=== PATIENT | female | born 1975 | race Asian ===

== ENCOUNTER 2017-02-27 07:39 | Emergency (ER) | payer OTHER ==
[~2017-02-27] VITALS: Ht 154.9 cm; Wt 61.3 kg
[2017-02-27 08:53] VITALS: BP 121/88
== END 2017-02-27 08:53 | disposition home or self-care (01) ==
LOC: ED 07:39
DX: M54.5 Low back pain (principal); F17.200 Nicotine dependence, unspecified, uncomplicated; X50.0XXA Overexertion from strenuous movement or load, initial encounter; Y93.89 Activity, other specified; Y92.89 Other specified places as the place of occurrence of the external cause; Y99.8 Other external cause status
CPT/HCPCS: J1885